=== PATIENT | female | born 1995 | race Caucasian/White ===

== ENCOUNTER → 2018-01-15 | Day surgery (SDC) | payer BC ==
[~2018-01-15] MED LIST: BIRTH CONTROL PILL PO; FENTANYL CITRATE/PF 100MCG/2 ML INJ ONE; HYOSCYAMINE SULFATE 0.5 MG/ML AMP ONE; LO LOESTRIN FE1 EACH PO; MIDAZOLAM HCL 2 MG/2 ML VIAL ONE; PROPOFOL IV EMULSION 10 MG/ML 50 ML VIAL ONE
--- NOTE | 2018-01-15 11:02 | Operative Report ---
DATE OF PROCEDURE: January 15, 2018 REFERRING PHYSICIAN: Dr. Andry Bravo PROCEDURE PERFORMED: Colonoscopy. INDICATIONS FOR COLONOSCOPY: Rectal bleeding, anorectal pain and constipation. MEDICATION: Patient was done under MAC. Please see anesthesiologist's note. PROCEDURE: With the patient in the left lateral decubitus position, the flexible fiberoptic Olympus colonoscope was inserted into the rectum with ease and advanced all the way to the cecum. It was then withdrawn slowly. Mucosa overlying the cecum, ascending, transverse, descending, sigmoid, and rectum grossly appeared to be within normal limits. The scope was then retroflexed into the distal rectum and small internal hemorrhoids were noted, none of which was actively bleeding. The scope was then straightened out. The scope was subsequently withdrawn. An anal fissure was noted on the way out that was none actively bleeding. Patient tolerated the procedure well. IMPRESSION 1. Internal hemorrhoids, none actively bleeding. 2. Anal fissure. PLAN: Initiate high-fiber and low-fat diet. Initiate high-fiber supplement. Increase water intake to at least 64 ounces of water a day. Initiate hydrocortisone suppository 25 mg b.i.d. times 10 days and then p.r.n. Check TSH. Job#: [id number] CT
== END | disposition home or self-care (01) ==
LOC: OR 06:55 → EDBD 08:30
PROVIDERS: ATTEND Internal Medicine Gastroenterology
DX: K60.2 Anal fissure, unspecified (principal); K59.00 Constipation, unspecified; K64.8 Other hemorrhoids; Z68.25 Body mass index [BMI] 25.0-25.9, adult
CPT/HCPCS: 36415; 45378; 81025; 84443; J1980; J2250